=== PATIENT | male | born 1975 | race Caucasian/White ===

== ENCOUNTER → 2024-01-25 04:03 | Outpatient (CLI) | payer BC, SELFPAY ==
--- NOTE | 2024-01-25 | DI.NM_ITS ---
Exam(s) NM BONE SCAN WHOLE BODY GRP EXAM: NM BONE SCAN WHOLE BODY GRP CLINICAL HISTORY: PROSTATE CANCER, C61. TECHNIQUE: Injected Dose: 25 mCi Tc-99m MDP Delayed Images: 2-3 hours. COMPARISON: No exams were available for comparison. If there are outside examinations please submit them for comparison. FINDINGS: Increased activity in the T11 vertebral body. Significant focus of increased activity in anterior ri b which may be the 6th rib. Small focus of activity in the left 8th rib. Several foci of activity a re noted in the skull. Activity in the mandible could be related to dental disease. Partially inclu ded on the exam is focus of increased activity in the right upper 3rd of the humerus. There is a sma ll focus of activity in the distal 3rd of the right femur. Activity in the shoulders and feet is lik kevan degenerative. IMPRESSION: Multiple foci of increased activity, particularly in the left 6th rib and lower thoracic spine. Find ings suspicious for metastatic disease. DATA REPOSITORY:
== END ==
PROVIDERS: PCP Nurse Practitioner; Visit Provider Nurse Practitioner
DX: C61 Malignant neoplasm of prostate (principal)
CPT/HCPCS: 78306

== ENCOUNTER 2024-01-27 12:07 | Outpatient (REF) | payer BC, SELFPAY ==
--- NOTE | 2024-01-27 12:30 | PROST_PTH ---
PATIENT: Cristopher Morton LOC: [facility] U#:[id number] AGE/SX: 48/M ROOM: RE01/27/[address]: Lionel Johns MD : 1975 BED: DIS: 01/27/2024 SPEC #: [id number] RECD: 01/27/24 16:23 STATUS: RAGHAV REDominique #: [id number] CODY: 01/27/24 12:[address]: Lionel Johns DEPT: Surgical Specimen RECD BY: Shauna Alcantar ENTERED: 01/27/24 16:24 SP TYPE: PROST OTHR DR: Glendy Theodore Tissues: 1 - PROSTATE NEEDLE BIOPSY 2 - PROSTATE NEEDLE BIOPSY 3 - PROSTATE NEEDLE BIOPSY 4 - PROSTATE NEEDLE BIOPSY 5 - PROSTATE NEEDLE BIOPSY 6 - PROSTATE NEEDLE BIOPSY 7 - PROSTATE NEEDLE BIOPSY 8 - PROSTATE NEEDLE BIOPSY 9 - PROSTATE NEEDLE BIOPSY 10 - PROSTATE NEEDLE BIOPSY 11 - PROSTATE NEEDLE BIOPSY 12 - PROSTATE NEEDLE BIOPSY Procedures: GROSS AND MICRO LEVEL 4 Comments: [id number]
== END 2024-01-27 12:08 | disposition home or self-care (01) ==
LOC: LBN 12:07
PROVIDERS: PCP Nurse Practitioner; Visit Provider Urology
DX: R97.20 Elevated prostate specific antigen [PSA] (principal); N42.9 Disorder of prostate, unspecified
CPT/HCPCS: 88305